=== PATIENT | male | born 2000 | race Caucasian/White ===

== ENCOUNTER 2023-07-16 08:48 | Outpatient (CLI) | payer OTHER, SELFPAY ==
--- NOTE | 2023-07-16 09:00 | CRLHL7_ITS ---
For Patients: As a result of the Century Cures Act, medical imaging exams and procedure reports are released immediately into your electronic medical record. You may view this report before your referring provider. If you have questions, please contact your health care provider. Indication: Right foot pain. Technique: Right foot 2 views Comparison: None Findings: Bones: Alignment is normal. No fractures or suspicious bone lesions. Joint spaces: Joint spaces are well maintained. No degenerative changes. Soft tissues: Unremarkable. Impression: No findings to explain pain. Dictated by Kelvin Moffett MD @ 07/16/2023 9:08:35 AM (Electronically Signed)
== END 2023-07-16 08:49 | disposition home or self-care (01) ==
LOC: RAD 08:50
PROVIDERS: PCP Chiropractor; Visit Provider Chiropractor
DX: M79.671 Pain in right foot (principal)
CPT/HCPCS: 73620